=== PATIENT | male | born 1965 | race Caucasian/White ===

== ENCOUNTER 2016-10-29 05:25 | Day surgery (SDC) | payer BC ==
[~2016-10-29] VITALS: Ht 185.4 cm; Wt 75.8 kg
[2016-10-29 05:53] VITALS: BP 93/58; Ht 185.4 cm; Wt 75.8 kg
[2016-10-29] MEDS ORDERED: DILAUDID2 MG PO (08:55)
--- NOTE | 2016-10-29 13:10 | NUR ---
1030 DISCHARGE INSTRUCTIONS REVIEWED WITH PATIENT; ELBOW FLEXION ONLY; VERBALIZED UNDERSTANDING
--- NOTE | 2016-10-30 12:35 | OP ---
PATIENT NAME: DEBORA VAZQUEZ MEDICAL RECORD: [id number] :65 LOCATION:[facility] ADMISSION DATE: SURGEON: ZAYNAB BUSH MD DATE OF OPERATION: 10/29/2016 PREOPERATIVE DIAGNOSES: SLAP lesion of the right shoulder with impingement syndrome and acromioclavicular arthritis. POSTOPERATIVE DIAGNOSES: SLAP lesion of the right shoulder with impingement syndrome and acromioclavicular arthritis. PROCEDURES: 1. Arthroscopic SLAP repair. 2. Arthroscopic distal clavicle excision -- 1 cm done through a separate incision. 3. Arthroscopic subacromial decompression, acromioplasty and bursectomy. SURGEON: Zaynab Bush MD ANESTHESIA: General. INTRAOPERATIVE COMPLICATIONS: None. SUMMARY OF PATHOLOGIC FINDINGS: The patient did indeed have a SLAP lesion from the 3 o'clock to the 10 o'clock position requiring repair. The patient also had impingement syndrome and acromioclavicular arthritis. OPERATIVE SUMMARY IN DETAIL: After obtaining the appropriate preoperative orthopedic surgery consent as well as anesthetic consultation, evaluation and clearance, the patient was brought to the operating room and placed on the operating table in supine position. After general laryngeal mask was administered, the patient was placed in left lateral decubitus position. All pressure points were well padded to include down leg peroneal pad as well as axillary roll. The patient was held firmly to the operating table using the vacuum pack suction system. The patient's right upper extremity and shoulder were then prepped and draped in routine sterile fashion. The arm was held in the Arthrex traction boom at 30 degrees of flexion, 30 degrees of abduction with 10 pounds of traction laterally. Arthroscopy was established in the glenohumeral joint from a posterior portal. Anterior portal was established in the anterior safe interval. Diagnostic arthroscopy of the labral tearing was noted. Intraoperative photographs were taken. A tertiary portal was created and the resected was utilized to debride the superior, anterior and posterior aspect of the superior hemisphere of the glenoid rim. At this point, a total of three 2.9 Arthrex PushLocks were utilized with labral tape in a mattress style fashion. One placed at the 2 o'clock, 11 o'clock and 10 o'clock positions. This resulted in excellent anatomic anchoring of the superior labral tear. Having completed this, arthroscopy was established in the glenohumeral joint from a posterior portal. Anterior portal was established in the anterior safe interval. Diagnostic arthroscopy showed the patient had excoriation of the coracoacromial ligament consistent with the diagnosis of impingement. The undersurface of acromion was denuded of all soft tissue elements to the level of acromioclavicular joint. A 5-0 barrel bur was used to perform acromioplasty at the level of acromioclavicular joint through a separate arthroscopic anterior portal. A 1 cm of distal clavicle was excised along with the inferior osteophytes. Having completed this, the patient's bursa anterior, superior, OPERATIVE REPORT [id number] DEBORA VAZQUEZ posterior and laterally was debrided with the 5.0 resector. Having completed this, arthroscopy portals were closed in routine interrupted fashion using 4-0 Prolene. Sterile dressings were applied. The patient was awakened, taken to recovery room in stable condition. All final needle and sponge counts were correct. TRANSINT:[id number] Voice Confirmation ID: [id number] DOCUMENT ID: [id number] RACHELLE LUNDY, ZAYNAB SAWANT at 1235 CC: [id number] DICTATION DATE: 10/29/16919 FORGING DIE FINISHER: 10/29/161913 [facility] 10/29/16 [facility] [address] [place] [address]
== END 2016-10-29 10:35 | disposition home or self-care (01) ==
LOC: D.OPS 05:25 → D.PAN 08:00 → D.OPS 08:45 → D.PAN 08:45 → D.OPS 10:35
DX: M75.101 Unspecified rotator cuff tear or rupture of right shoulder, not specified as traumatic (principal); F17.200 Nicotine dependence, unspecified, uncomplicated; S43.491A Other sprain of right shoulder joint, initial encounter; M24.819 Other specific joint derangements of unspecified shoulder, not elsewhere classified; Z01.812 Encounter for preprocedural laboratory examination

== ENCOUNTER → 2017-04-12 10:24 | Outpatient (CLI) | payer OTHER ==
[~2017-04-12 10:24] MED LIST: DILAUDID2 MG PO
== END | disposition home or self-care (01) ==
LOC: D.RAD 10:15
DX: Z02.71 Encounter for disability determination (principal)

== ENCOUNTER 2020-11-18 01:15 | Emergency (ER) | payer MEDICARE, BC ==
[~2020-11-18] VITALS: Ht 182.9 cm; Wt 68.2 kg
[~2020-11-18 01:15] MED LIST changes: +ULTRAM50 MG PO
[2020-11-18 01:22] VITALS: Ht 182.9 cm; Wt 68.2 kg
[2020-11-18 02:36] LABS: CALC OSMOLALITY 280 mosm/kg (275-300); CALCIUM 8.9 mg/dL (8.5-10.1); CARBON DIOXIDE 29.8 mmol/L (21.0-32.0); CHLORIDE - SERUM 101 mmol/L (98-107); CREATININE - SERUM 0.7 mg/dL (0.6-1.3); GLUCOSE 112 mg/dL (74-106); POTASSIUM - SERUM 3.6 mmol/L (3.5-5.1); SODIUM 141 mmol/L (136-145); UREA NITROGEN 9 mg/dL (7-18); eGFR NON AFRICAN AMERICAN > 90 mL/min (90-120)
[2020-11-18 02:51] LABS: ALBUMIN 3.9 g/dL (3.4-5.0); ALKALINE PHOSPHATASE 96 U/L (30-120); ALT (SGPT) 44 U/L (10-68); BILIRUBIN - TOTAL 0.68 mg/dL (0.2-1.3); PROTEIN - SERUM 8.6 g/dL (6.4-8.2)
[2020-11-18 03:06] LABS: BASOPHILS 1.3 % (0-2); EOSINOPHILS 0.5 % (0-7); HEMATOCRIT 43.7 % (42.0-54.0); LYMPHOCYTES 39.3 % (15-50); MCH 34.2 pg (26.0-34.0); MCHC 34.4 g/dL (31.0-37.0); MCV 99.4 fL (80.0-100.0); MEAN PLATELET VOLUME 8.6 fL (7.4-10.4); MONOCYTES 16.1 % (2-11); NEUTROPHILS 42.8 % (40-80); RBC 4.39 10x6/uL (4.20-6.10); RDW 14.5 % (11.5-14.5); WBC 3.2 10x3/uL (4.8-10.8)
[2020-11-18 03:08] LABS: PLATELET COUNT 47 10x3/uL (130-400); PLATELET ESTIMATE DECREASED
[2020-11-18 03:59] VITALS: BP 118/85
== END 2020-11-18 03:59 | disposition home or self-care (01) ==
LOC: D.ER 01:15
PROVIDERS: Family Medicine
DX: R55 Syncope and collapse (principal); D69.6 Thrombocytopenia, unspecified; I10 Essential (primary) hypertension; K21.9 Gastro-esophageal reflux disease without esophagitis

== ENCOUNTER 2020-12-01 09:07 | Emergency (ER) | payer MEDICARE, BC ==
[~2020-12-01] VITALS: Ht 182.9 cm; Wt 67.3 kg
[2020-12-01 09:29] VITALS: BP 117/76; Ht 182.9 cm; Wt 67.3 kg
[2020-12-01] MEDS ORDERED: HYDROCODON-ACE1 EAC7 PO (10:14)
== END 2020-12-01 10:52 | disposition home or self-care (01) ==
LOC: D.ER 09:07
DX: S52.501A Unspecified fracture of the lower end of right radius, initial encounter for closed fracture (principal); M79.10 Myalgia, unspecified site; I10 Essential (primary) hypertension; K21.9 Gastro-esophageal reflux disease without esophagitis; X58.XXXA Exposure to other specified factors, initial encounter